=== PATIENT | female | born 1940 | race Caucasian/White ===

== ENCOUNTER 2022-04-19 14:08 | Emergency (ER) | payer MEDICARE, BC, SELFPAY ==
[2022-04-19] VITALS (8 sets, daily range): BP systolic 123–144; BP diastolic 60–75; PULSE 68–74; RESP 11–22; TEMP 36.3; O2SAT 93–98
--- NOTE | 2022-04-19 15:16 | DI.RAD.S_ITS ---
PROCEDURE: XR CHEST 1V INDICATIONS: chest pain TECHNIQUE: One view of the chest was acquired. COMPARISON: [facility], , CHEST 2 VIEW, 01/13/2013, 9:03. FINDINGS: Surgical changes and devices: None. Lungs and pleura: Right upper lobe airspace opacity. No pleural effusions or pneumothorax. Mediastinum: Mediastinal contours appear normal. Heart size is normal. Bones and chest wall: No suspicious bony lesions. Overlying soft tissues appear unremarkable. IMPRESSION: Right upper lobe airspace opacity. Suspect pneumonia. Recommend follow-up to resolution. Dictated by: Navid Carr M.D. on 04/19/2022 at 16:19 Approved by: Navid Carr M.D. on 04/19/2022 at 16:20
[2022-04-19 15:23] LABS: INR 1.9 (0.9-1.3)
[2022-04-19 15:25] LABS: Add Manual Diff / Slide Review NO; Basophils Absolute Auto 100 /uL (0-100); Basophils Percent Auto 0.7 % (0-2); Eosinophils Absolute Auto 100 /uL (0-450); Eosinophils Percent Auto 0.7 % (2-4); Hematocrit 40.2 % (36-46); Hemoglobin 13.3 g/dL (12.0-16.0); Lymphocytes Absolute Auto 1300 /uL (1100-4500); Lymphocytes Percent Auto 10.8 % (25-40); Mean Corpuscular HGB Conc 33.2 % (30-36); Mean Corpuscular Hemoglobin 30.8 PG (26-34); Mean Corpuscular Volume 92.8 fL (80-100); Monocytes Absolute Auto 1100 /uL (0-900); Monocytes Percent Auto 9.1 % (3-14); Neutrophils Absolute Auto 9600 /uL (1500-7000); Neutrophils Percent Auto 78.7 % (50-75); Platelet Count 526 X10^3/uL (150-400); Red Blood Cell Count 4.33 X10^6/uL (4.0-5.2); White Blood Cell Count 12.2 X10^3/uL (4.5-11.0)
[2022-04-19 15:26] LABS: PTT Partial Thromboplastin Tim 33 SECONDS (26.4-36.2)
[2022-04-19 15:30] LABS: Alanine Aminotransferase 58 IU/L (<35); Albumin 3.4 g/dL (3.5-5.0); Albumin Globulin Ratio 0.9 (1.0-2.8); Alkaline Phosphatase 165 U/L (38-126); Aspartate Aminotransferase 56 IU/L (14-36); BUN Creatinine Ratio 19.1 (6-22); Bilirubin Total 1.3 mg/dL (0.2-1.3); Blood Urea Nitrogen 13 mg/dL (7-17); Calcium 8.5 mg/dL (8.4-10.2); Carbon Dioxide 29 mmol/L (22-32); Chloride 103 mmol/L (98-107); Creatine Kinase 36 U/L (30-135); Estimated Glomerular Filt Rate > 60 mL/min (>60); Globulin 3.9 g/dL (1.7-4.1); Glucose 109 mg/dL (80-110); HEMOLYSIS 27 (0-50); Lipase 82 U/L (23-300); Magnesium 2.1 mg/dL (1.6-2.3); Potassium 3.6 mmol/L (3.4-5.1); Sodium 138 mmol/L (137-145); Total Protein 7.3 g/dL (6.3-8.2)
[2022-04-19 15:41] LABS: Troponin I 0.012 ng/mL (0.01-0.034)
--- NOTE | 2022-04-19 16:08 | DI.US.S_ITS ---
PROCEDURE: US ABDOMEN LIMITED INDICATIONS: FEELING UNWELL, MILD ELEVATION LFT'S TECHNIQUE: Real-time focused scanning was performed of the abdomen, with image documentation. COMPARISON: None. FINDINGS: Liver is normal in size. Liver has normal homogeneous echotexture. Small liver cysts are noted. Largest cyst is in the left lobe measures 0.8 x 1.0 x 1.9 centimeters. Gallbladder is surgically absent. Biliary tree is nondilated. Common bile duct measures 1.5 millimeters. Pancreas obscured by bowel gas and cannot be evaluated. IMPRESSION: 1. Hepatic cysts. 2. Cholecystectomy. Dictated by: Chitra Lawrence MD, PhD on 04/19/2022 at 17:00 Approved by: Chitra Lawrence MD, PhD on 04/19/2022 at 17:01
[2022-04-19 16:12] LABS: Lipase 82 U/L (23-300)
[2022-04-19 17:08] LABS: COVID19 -Nasal RAPID Negative (Negative)
--- NOTE | 2022-04-19 18:27 | ED_ITS ---
HPI - Weakness General Chief complaint: Weakness Stated complaint: Low sodium, Liver elevation- Sent by Tory Time Seen by Provider: 04/19/22 15:44 Source: patient and family Mode of arrival: Wheelchair Limitations: no limitations History of Present Illness HPI Narrative: This is an 82-year-old female with history of atrial fibrillation on Eliquis, diltiazem and normally she comes emergency department with complaint of feeling unwell. Patient was hospitalized at [facility] for pneumonia which was right upper lobe. She had CT scan while she was hospitalized. She was there for 3 days and discharged on the 3rd. Patient states she received IV antibiotics while she was there her discharge paper instructed her to have finished antibiotics but a prescription did not arrive at her regular pharmacy. She also had hyponatremia in hospital, she had labs outpatient with her physician and states she was told her liver enzymes were elevated and to come to the ER. She has been afebrile. She denies any chest pain, shortness of breath, no dizziness or passing out. She states she had some hemoptysis prior to her hospitalization but has not had any additional. She has not had persistent cough. She has not had nausea, no vomiting no major changes to bowel movements, no dysuria urgency or frequency. She has not appreciated any new persistent swelling in her legs. She is allergic to sulfa. Her primary care is Dr. Spears who she has been in touch with over the last several days and today as well. Related Data Previous Rx's Medication Instructions Recorded amoxicillin 875 mg-potassium 1 tab PO Q12H #20 tab 04/19/22 clavulanate 125 mg tablet Allergies Allergy/AdvReac Type Severity Reaction Status Date / Time SULFA (sulfonamide) Allergy Unknown Uncoded 02/20/18 13:04 Review of Systems Review of Systems ROS Unobtainable: All systems reviewed & are unremarkable except as noted in HPI and below Exam Narrative Exam Narrative: GENERAL: Alert and oriented x three, well-nourished female in mild distress. HEENT: Head normocephalic, atraumatic, EOMI, pupils reactive, face symmetric, moist mucous membranes NECK: Supple, full range of motion CARDIOVASCULAR: Regular rate and rhythm without murmurs, rubs or gallops. No JVD. RESPIRATORY: Breath sounds equal bilaterally, no wheezes rales or rhonchi. No tachypnea or accessory muscle use. ABDOMEN: Soft, nontender. Normoactive bowel sounds all 4 quadrants. No guarding or rebound, rigidity, no mass : No CVA tenderness EXTREMITIES: Normal range of motion, no clubbing or edema. Neurovascularly intact. 2+ pulses bilateral lower extremities. NEUROLOGICAL: Cranial nerves II through XII grossly intact. Moving all extremities. Normal gait. SKIN: Warm, dry, no petechiae, no rashes or lesions. Initial Vital Signs Initial Vital Signs: Vital Signs Temperature 97.3 F L 04/19/22 14:16 Pulse Rate 70 04/19/22 14:16 Respiratory Rate 22 04/19/22 14:16 Blood Pressure 130/68 04/19/22 14:16 Pulse Oximetry 96 04/19/22 14:16 Course Orders Ordered: ED Orders 04/19/22 14:40 Complete Blood Count AUTO DIFF Stat Comprehensive Metabolic Panel Stat Lipase Stat Lipase Stat Magnesium Stat Partial Thromboplastin Time Stat Prothrombin Time INR Stat Troponin & CK Cardiac Panel Stat 04/19/22 15:16 XR chest 1V Stat 04/19/22 16:08 US abdomen limited Stat 04/19/22 16:10 COVID19 -Nasal RAPID/Pre-Proc Stat Consultations Consultation #1: Dr. Adams updated on findings from today. Vital Signs Vital signs: Vital Signs - 8 hr 04/19/22 14:16 04/19/22 15:32 04/19/22 16:00 Temperature 97.3 F L Pulse Rate 70 69 70 Respiratory Rate 22 13 21 Blood Pressure 130/68 132/75 Pulse Oximetry 96 95 93 MDM - Weakness Lab Data Result diagrams: 04/19/22 14:40 04/19/22 14:40 Labs: Lab Results 04/19/22 04/19/22 04/19/22 Range/Units 14:40 14:40 14:40 WBC 12.2 H (4.5-11.0) X10^3/uL RBC 4.33 (4.0-5.2) X10^6/uL Hgb 13.3 (12.0-16.0) g/dL Hct 40.2 (36-46) % MCV 92.8 (80-100) fL MCH 30.8 (26-34) PG MCHC 33.2 (30-36) % RDW 14.0 (11.6-14.8) % Plt Count 526 H (150-400) X10^3/uL Neut % (Auto) 78.7 H (50-75) % Lymph % (Auto) 10.8 L (25-40) % [place] % (Auto) 9.1 (3-14) % Eos % (Auto) 0.7 L (2-4) % Baso % (Auto) 0.7 (0-2) % Neut # (Auto) 9600 H (0315-6284) /uL Lymph # (Auto) 1300 (7921-6286) /uL [place] # (Auto) 1100 H (0-900) /uL Eos # (Auto) 100 (0-450) /uL Baso # (Auto) 100 (0-100) /uL PT 21.0 H (10.1-12.7) SECONDS INR 1.9 H (0.9-1.3) APTT 33 (26.4-36.2) SECONDS Sodium 138 (137-145) mmol/L Potassium 3.6 (3.4-5.1) mmol/L Chloride 103 (98-107) mmol/L Carbon Dioxide 29 (22-32) mmol/L BUN 13 (7-17) mg/dL Creatinine 0.68 (0.52-1.04) mg/dL Estimated GFR > 60 (>60) mL/min BUN/Creatinine Ratio 19.1 (6-22) Glucose 109 (80-110) mg/dL Calcium 8.5 (8.4-10.2) mg/dL Magnesium 2.1 (1.6-2.3) mg/dL Total Bilirubin 1.3 (0.2-1.3) mg/dL AST 56 H (14-36) IU/L ALT 58 H (<35) IU/L Alkaline Phosphatase 165 H (38-126) U/L Total Creatine Kinase 36 (30-135) U/L CK-MB (CK-2) TNP CK-MB (CK-2) Rel Index TNP Troponin I 0.012 (0.01-0.034) ng/mL Total Protein 7.3 (6.3-8.2) g/dL Albumin 3.4 L (3.5-5.0) g/dL Globulin 3.9 (1.7-4.1) g/dL Albumin/Globulin Ratio 0.9 L (1.0-2.8) Lipase 82 (23-300) U/L SARS-CoV-2 (PCR) (Negative) 04/19/22 04/19/22 Range/Units 14:40 16:10 WBC (4.5-11.0) X10^3/uL RBC (4.0-5.2) X10^6/uL Hgb (12.0-16.0) g/dL Hct (36-46) % MCV (80-100) fL MCH (26-34) PG MCHC (30-36) % RDW (11.6-14.8) % Plt Count (150-400) X10^3/uL Neut % (Auto) (50-75) % Lymph % (Auto) (25-40) % [place] % (Auto) (3-14) % Eos % (Auto) (2-4) % Baso % (Auto) (0-2) % Neut # (Auto) (5077-3947) /uL Lymph # (Auto) (2917-2401) /uL [place] # (Auto) (0-900) /uL Eos # (Auto) (0-450) /uL Baso # (Auto) (0-100) /uL PT (10.1-12.7) SECONDS INR (0.9-1.3) APTT (26.4-36.2) SECONDS Sodium (137-145) mmol/L Potassium (3.4-5.1) mmol/L Chloride (98-107) mmol/L Carbon Dioxide (22-32) mmol/L BUN (7-17) mg/dL Creatinine (0.52-1.04) mg/dL Estimated GFR (>60) mL/min BUN/Creatinine Ratio (6-22) Glucose (80-110) mg/dL Calcium (8.4-10.2) mg/dL Magnesium (1.6-2.3) mg/dL Total Bilirubin (0.2-1.3) mg/dL AST (14-36) IU/L ALT (<35) IU/L Alkaline Phosphatase (38-126) U/L Total Creatine Kinase (30-135) U/L CK-MB (CK-2) CK-MB (CK-2) Rel Index Troponin I (0.01-0.034) ng/mL Total Protein (6.3-8.2) g/dL Albumin (3.5-5.0) g/dL Globulin (1.7-4.1) g/dL Albumin/Globulin Ratio (1.0-2.8) Lipase 82 (23-300) U/L SARS-CoV-2 (PCR) Negative (Negative) Urine Dip Bedside Urine Glucose Negative Bedside Urine Bilirubin - Negative Bedside Urine Ketone +/- 5 Urine Specific [place] 1.015 Bedside Urine Occult Blood - Negative Bedside Urine pH 6.5 Bedside Urine Protein - Negative Bedside Urine Urobilinogen - Negative Bedside Urine Nitrite - Negative Bedside Urine Leukocytes - Negative Esterase Imaging Data Chest x-ray: Radiologist Impression: [address] [address] XRay Report Signed Patient: Isabel Joaquin MR#: [id number] : 1940 Acct:[id number] Age/Sex: 82 / F Date of Service: 04/19/22 Loc: ED Accession Number: [id number] ?? Procedure: XR chest 1V Ordering Provider: Suyapa Han D.O. PROCEDURE:? XR CHEST 1V ? INDICATIONS:? chest pain ? TECHNIQUE:? One view of the chest was acquired.? ? COMPARISON:? [facility], , CHEST 2 VIEW, 01/13/2013, 9:03. ? FINDINGS:? ? Surgical changes and devices:? None.? ? Lungs and pleura:? Right upper lobe airspace opacity.? No pleural effusions or pneumothorax.? ? Mediastinum:? Mediastinal contours appear normal.? Heart size is normal.? ? Bones and chest wall:? No suspicious bony lesions.? Overlying soft tissues appear unremarkable.? ? IMPRESSION:? Right upper lobe airspace opacity.? Suspect pneumonia. ? Recommend follow-up to resolution. ? ? Dictated by: Navid Carr M.D. on 04/19/2022 at 16:19 ? ? Approved by: Navid Carr M.D. on 04/19/2022 at 16:20?? US - abdomen: Radiologist Impression: Isabel Joaquin??82??F??1940 ? Allergy/Adv: [SULFA (sulfonamide)] Close Abdomen Ultrasound (Signed) Chitra Lawrence - 04/19/22 Chest X-Ray (Signed) Call,Navid - 04/19/22 Launch?[address] [address] Ultrasound Report Signed Patient: Isabel Joaquin MR#: [id number] : 1940 Acct:[id number] Age/Sex: 82 / F Date of Service: 04/19/22 Loc: ED Accession Number: [id number] ?? Procedure: US abdomen limited Ordering Provider: Suyapa Han D.O. PROCEDURE: US ABDOMEN LIMITED ? INDICATIONS:? FEELING UNWELL, MILD ELEVATION LFT'S ? TECHNIQUE:? Real-time focused scanning was performed of the abdomen, with image documentation.? ? COMPARISON:? None. ? FINDINGS:? ? Liver is normal in size.? Liver has normal homogeneous echotexture.? Small liver cysts are noted.? Largest cyst is in the left lobe measures 0.8 x 1.0 x 1.9 centimeters. ? Gallbladder is surgically absent. ? Biliary tree is nondilated.? Common bile duct measures 1.5 millimeters. ? Pancreas obscured by bowel gas and cannot be evaluated. ? IMPRESSION:? ? 1. Hepatic cysts. ? 2. Cholecystectomy.? ? ? Dictated by: Chitra Lawrence MD, PhD on 04/19/2022 at 17:00 ? ? Approved by: Chitra Lawrence MD, PhD on 04/19/2022 at 17:01? ECG Data Attestation: I personally reviewed and interpreted this ECG as follows: Interpretation: AFib rate of 73 QRS of 72 QTC of 464. L left axis deviation. No acute ST changes appreciated. MDM Narrative Medical decision making narrative: This is a 82-year-old female who had a recent hospitalization for right upper lobe pneumonia with CT which she states only showed pneumonia. She was also hyponatremic during her hospital stay. She has continued to feel generally unwell although not having persistent respiratory symptoms. She has been afebrile, no other GI or urinary symptoms. She had outpatient labs she states she was told her LFTs were elevated and referred here. I do not have her prior baseline labs but she has a leukocytosis of 12, LFTs are in the 50s with an alk- phos of 165, negative lipase, negative troponin with no acute EKG changes appreciated. She is in AFib which she states she does not sense and is anticoagulated with warfarin. INR was 1.9 today. COVID swab was negative. Chest x-ray redemonstrates right upper lobe changes. Ultrasound of right upper quadrant was obtained although patient has had cholecystectomy there is a hepatic cyst but no other acute changes appreciated. Point of care urine showed some ketones but no signs of infection. After further discussion patient and her family notes she was discharged her paperwork noted she was supposed to be sent a prescription for medication they do not know the name but it did arrive at their pharmacy. She had 3 days of antibiotics in the hospital followed by 1 day prior to hospitalization for oral antibiotic for total of 4 days of antibiotics over for and we discussed that perhaps she needs to complete a full course and this may be helpful. Patient is to follow up with primary care but prescription was sent to the local pharmacy with return precautions. Discharge Plan Departure Patient Disposition: Home Clinical Impression: Abnormal LFTs, Hepatic cyst, Right upper lobe pneumonia Activity Restrictions/Additional Instructions: Follow up with your physician, you liver enzymes are very mildly elevated. Your sodium today is normal. I spoke with Dr. Spears's partner this evening and they are aware of your findings and current plan. We did not get a urine sample to check for infection but I did not find any other changes today. Check the discharge paperwork from [facility] and ask your physician office to let you know what kind of medication you were supposed to get. Make sure to drink plenty of fluids. You do still have change to the right upper lung similar to your last hospital stay. Please return for worsening symptoms, fevers, new chest pain, shortness of breath, coughing up blood, persistent vomiting, new swelling in her extremities or other new or concerning symptoms. Prescriptions: New amoxicillin-pot clavulanate 875-125 mg tablet 1 tab PO Q12H Qty: 20 0RF Referrals: Shankar Spears MD [Primary Care Provider] -
== END 2022-04-19 19:35 | disposition home or self-care (01) ==
PROVIDERS: Emergency Provider Emergency Medicine; PCP Family Medicine
DX: K76.89 Other specified diseases of liver (principal); J18.9 Pneumonia, unspecified organism; R79.89 Other specified abnormal findings of blood chemistry; R07.9 Chest pain, unspecified; Z20.822 Contact with and (suspected) exposure to COVID-19
CPT/HCPCS: 36415; 71045; 76705; 80053; 81003; 82550; 83690; 83735; 84484; 85025; 85610; 85730; 87635; 93005; 93010; 99284; C9803

== ENCOUNTER → 2022-06-16 12:24 | Outpatient (CLI) | payer MEDICARE, BC, SELFPAY ==
--- NOTE | 2022-06-16 | DI.RAD.S_ITS ---
PROCEDURE: XR CHEST 2V INDICATIONS: PNEUMONIA TECHNIQUE: 2 views of the chest were acquired. COMPARISON: [facility], [facility]ANIE, CHEST 2 VIEW, 01/13/2013, 9:03. [facility], [facility]ANIE, XR CHEST 1V, 04/19/2022, 15:41. FINDINGS: Surgical changes and devices: Right upper quadrant cholecystectomy clips. Lungs and pleura: Previously seen right upper lobe opacity has resolved. No acute consolidation. No pleural effusion or pneumothorax. Mediastinum: Mediastinal contours are normal. Heart size is borderline enlarged. Bones and chest wall: No suspicious bony abnormalities. Soft tissues appear unremarkable. IMPRESSION: Previously seen right upper lobe opacities have resolved. Dictated by: Emmett Rodriguez M.D. on 06/16/2022 at 14:12 Approved by: Emmett Rodriguez M.D. on 06/16/2022 at 14:15
== END ==
PROVIDERS: PCP Family Medicine; Referring Provider Family Medicine; Visit Provider Family Medicine
DX: J18.9 Pneumonia, unspecified organism (principal)
CPT/HCPCS: 71046